=== PATIENT | female | born 1975 | race Caucasian/White ===

== ENCOUNTER 2017-09-09 22:07 | Emergency (ER) | payer OTHER, SELFPAY ==
[2017-09-09 22:08] VITALS: BP 145/90; PULSE 94; RESP 16; TEMP 37.1; O2SAT 97; BMI 40.6
[2017-09-09] MEDS: Naproxen 500 MG Tablet PO (22:38)
[2017-09-09] MEDS: Ondansetron ODT 4 MG Tablet PO (22:38)
--- NOTE | 2017-09-09 22:45 | RAD_ITS ---
STUDY: X-RAY CHEST REASON FOR EXAM: Female, 42 years old. Cough TECHNIQUE: Frontal and lateral views of the chest. COMPARISON: None. FINDINGS: The lungs are clear and expanded. There is no demonstrated pleural abnormality. Normal size heart. Normal mediastinum and katie. Normal visualized pulmonary arteries. Normal visualized aortic arch and descending thoracic aorta. Normal visualized thoracic spine. Normal visualized ribs, clavicles, and shoulders. There is no demonstrated abnormality of the visualized soft tissue structures of the upper abdomen. RAD/Chest PA and Lateral IMPRESSION: Normal x-ray examination of the chest. Electronically Signed: Miguel Ángel Camejo MD at 23:51 EDT Tel , Service support ,
--- NOTE | 2017-09-10 00:01 | ED.VISSUMM ---
- ER Visit Summary Date of Service: 09/10/17 Chief Complaint: Generalized illness History of Present Illness: The patient is a 42 F presenting for evaluation secondary generalized illness. Patient reports over the course last 4-5 days she has been feeling generally ill. Patient states it has been associated with sore throat dry cough and some nausea. She denies that she has been having any sort of vomiting or diarrhea. She does believe that she has been having any fevers. It has been associated with a gradual onset of a headache, which she states that slowly progressed to a migraine. Patient states that she took her prescribed Zomig for this, and it seemed to have alleviated her symptoms. Patient states that she currently is living in a dormitory as she is part of the [employer] group that is in town. She reports that the dormitory is not air conditioned which potentially is contributing to this as well as she is working 14 hour days. Physical Examination: Vital signs are within normal limits, patient is afebrile. General: Patient is well-nourished well-developed and in no acute distress. Head: Normocephalic, atraumatic Eyes: Pupils equal round and reactive bilaterally, extra occular motion intact bialterally ENT: Moist mucous membranes, posterior oropharynx is clear Neck: Supple, no lymphadenopathy, no JVD, no meningismus CVS: Heart regular rate and rhythm, no murmurs, rubs or gallops, radial pulses 2+ bilaterally Resp: Respirations nondistressed, lung sounds clear bilaterally Abdomen: Soft, nontender, nondistended, no palpable masses, normal bowel sounds Back: Nontender Extremities: Nontender, atraumatic, active full range of motion, no peripheral edema Skin: warm, no rashes, no petechia Neuro: Alert and oriented x 4, CN 2-12 intact, no lateralizing neurological defecits Psyc: Normal affect Test Results: PA and lateral chest x-ray shows no evidence of acute pathology per radiology, influenza swab negative Emergency Department Course and Treatment: Patient presented for evaluation secondary to generalized illness. Chest x-ray was obtained to check for pneumonia this was found to be negative. Flu swab was also found to be negative. Patient was treated with Zofran and Naprosyn, she did have some symptomatic improvement on repeat evaluation. Patient is otherwise well appearing, has normal vital signs, I do not believe that she requires further workup or admission. Patient will be treated as an outpatient with course of Zofran and instructed to follow-up with primary care. Disposition: Discharge Impression: 1. Viral illness This note was generated with [employer] dictation software. It may contain incorrect words, spelling, and punctuation that were not noted in review of the chart prior to signing ED Disposition - Plan for ED Patient: Disposition: Home or Assisted Living Chief Complaint: General Illness Diagnosis: Viral illness Instructions: ED Viral Syndrome Prescriptions: Ondansetron [Zofran Odt] 4 mg PO Q8H PRN PRN #10 tab PRN Reason: Nausea Referrals: Care Physician,No Primary [Primary Care Provider] - 3-5 Days if not improving
--- NOTE | 2017-09-10 00:07 | ED.DCSUM_ITS ---
- ER Visit Summary Date of Service: 09/10/17 Chief Complaint: Generalized illness History of Present Illness: The patient is a 42 F presenting for evaluation secondary generalized illness. Patient reports over the course last 4-5 days she has been feeling generally ill. Patient states it has been associated with sore throat dry cough and some nausea. She denies that she has been having any sort of vomiting or diarrhea. She does believe that she has been having any fevers. It has been associated with a gradual onset of a headache, which she states that slowly progressed to a migraine. Patient states that she took her prescribed Zomig for this, and it seemed to have alleviated her symptoms. Patient states that she currently is living in a dormitory as she is part of the [employer] group that is in town. She reports that the dormitory is not air conditioned which potentially is contributing to this as well as she is working 14 hour days. Physical Examination: Vital signs are within normal limits, patient is afebrile. General: Patient is well-nourished well-developed and in no acute distress. Head: Normocephalic, atraumatic Eyes: Pupils equal round and reactive bilaterally, extra occular motion intact bialterally ENT: Moist mucous membranes, posterior oropharynx is clear Neck: Supple, no lymphadenopathy, no JVD, no meningismus CVS: Heart regular rate and rhythm, no murmurs, rubs or gallops, radial pulses 2 + bilaterally Resp: Respirations nondistressed, lung sounds clear bilaterally Abdomen: Soft, nontender, nondistended, no palpable masses, normal bowel sounds Back: Nontender Extremities: Nontender, atraumatic, active full range of motion, no peripheral edema Skin: warm, no rashes, no petechia Neuro: Alert and oriented x 4, CN 2-12 intact, no lateralizing neurological defecits Psyc: Normal affect Test Results: PA and lateral chest x-ray shows no evidence of acute pathology per radiology, influenza swab negative Emergency Department Course and Treatment: Patient presented for evaluation secondary to generalized illness. Chest x-ray was obtained to check for pneumonia this was found to be negative. Flu swab was also found to be negative. Patient was treated with Zofran and Naprosyn, she did have some symptomatic improvement on repeat evaluation. Patient is otherwise well appearing, has normal vital signs, I do not believe that she requires further workup or admission. Patient will be treated as an outpatient with course of Zofran and instructed to follow-up with primary care. Disposition: Discharge Impression: 1. Viral illness This note was generated with [employer] dictation software. It may contain incorrect words, spelling, and punctuation that were not noted in review of the chart prior to signing ED Disposition - Plan for ED Patient: Disposition: Home or Assisted Living Chief Complaint: General Illness Diagnosis: Viral illness Instructions: ED Viral Syndrome Prescriptions: Ondansetron [Zofran Odt] 4 mg PO Q8H PRN PRN #10 tab PRN Reason: Nausea Referrals: Care Physician,No Primary [Primary Care Provider] - 3-5 Days if not improving
[2017-09-10 00:13] VITALS: BP 128/87; PULSE 83; RESP 16; O2SAT 98
--- NOTE | 2017-09-10 00:15 | ED.RN ---
REVIEWED D/C INSTRUCTIONS, FOLLOW UP CARE, AND S/S THAT WOULD WARRANT A RETURN TO THE ED WITH PT. PT VERBALIZED AN UNDERSTANDING AND DENIES FURTHER QUESTIONS FOR THIS RN. PT SKIN P/W/D, RESP EVEN AND UNLABORED, PT A&O X 3, NO DISTRESS NOTED. PT AMBULATED OUT OF ED, GAIT STEADY.
== END 2017-09-10 00:16 | disposition home or self-care (01) ==
PROVIDERS: Emergency Provider Emergency Medicine
DX: B34.9 Viral infection, unspecified (principal); R05 Cough; J02.9 Acute pharyngitis, unspecified; G43.909 Migraine, unspecified, not intractable, without status migrainosus; Z79.899 Other long term (current) drug therapy
CPT/HCPCS: 71046; 87804; 99283